=== PATIENT | female | born 2000 | race Caucasian/White ===

== ENCOUNTER 2020-08-04 23:02 | Emergency (ER) | payer OTHER ==
[~2020-08-04 23:02] MED LIST: PERCOCET 5-3251 EACH PO; ROBAXIN500 MG PO
[2020-08-05 00:32] LABS: BASOPHIL 0.5 % (0-2); EOSINOPHIL 4.6 % (0-5); HCT 40.5 % (37.0-47.0); HGB 13.4 g/dl (12.5-16.0); LYMPHOCYTE 19.8 % (15-48); MCHC 33.1 g/dL (32.0-36.0); MCV 84.6 fL (78.0-100.0); MONOCYTE 6.9 % (0-12); MPV 8.8 fL (6.0-9.5); NEUTROPHIL 67.9 % (41-80); NRBC 0; PLT 229 K/uL (150-400); RBC 4.79 M/uL (4.20-5.40); RDW 13.1 % (11.5-14.0); WBC 7.9 K/uL (4.0-10.5)
[2020-08-05 00:42] LABS: BILIRUBIN 1+ mg/dL (NEGATIVE); BLOOD 3+ Ery/uL (NEGATIVE); CLARITY CLEAR (CLEAR); COLOR YELLOW (YELLOW); GLUCOSE (U) NORMAL (NORMAL); LEUKOCYTES NEGATIVE Leu/uL (NEGATIVE); NITRITE NEGATIVE (NEGATIVE); PROTEIN TRACE (LOW) mg/dL (NEGATIVE); SPECIFIC GRAVITY >=1.030 (1.001-1.030); UROBILINOGEN 0.2 mg/dL (0.2-1.0); pH 5.5 (5.0-9.0)
[2020-08-05 00:47] LABS: AMPHETAMINES NEGATIVE (NEGATIVE); BARBITURATES NEGATIVE (NEGATIVE); ECSTASY (MDMA) NEGATIVE (NEGATIVE); MARIJUANA (THC) NEGATIVE (NEGATIVE); METHADONE NEGATIVE (NEGATIVE); OPIATES NEGATIVE (NEGATIVE); OXYCODONE NEGATIVE (NEGATIVE)
[2020-08-05 00:53] LABS: BACTERIA 2+; SQUAMOUS EPITHELIAL CELLS >50
[2020-08-05 01:24] LABS: CREATININE 0.61 mg/dL (0.51-0.95)
[2020-08-05 01:25] LABS: ALBUMIN 3.8 g/dL (3.4-5.0); BILIRUBIN - TOTAL 0.3 mg/dL (0.2-1.0); GLOBULIN (CALCULATION) 4.3 g/dL; POTASSIUM 3.8 mmol/L (3.5-5.1); TOTAL PROTEIN 8.1 g/dL (6.4-8.2)
[2020-08-05] MEDS ORDERED: AZITHROMYCIN250 MG PO (03:59)
== END 2020-08-05 04:25 | disposition home or self-care (01) ==
LOC: FER 23:02
PROVIDERS: Emergency Medicine
DX: J06.9 Acute upper respiratory infection, unspecified (principal); Z20.822 Contact with and (suspected) exposure to COVID-19
CPT/HCPCS: 36415; 71045; 71275; 80053; 80305; 81001; 83605; 85025; 85379; 87880; J1642; Q9967; U0002